=== PATIENT | female | born 1975 | race Caucasian/White ===

== ENCOUNTER 2016-12-25 20:30 | Emergency (ER) | payer OTHER ==
--- NOTE | 2016-12-25 23:06 | ED NURSING NOTES ---
Clinical Report - Nurses [facility] [address] [place] [address] 12/25/2016 20:30 Patient: ROSSY MCDONOUGH TRIAGE Triage time 2049. Acuity: LEVEL 4. Chief Complaint: PAINFUL URINATION, URGENCY and FREQUENCY. --21:12 Claribel Pete R.N. 20:40 12/25/16. BP: 123/78. HR: 84. RR: 18. O2 saturation: 100%. Temp: 98.8 F. --21:12 Claribel Pete R.N. Weight: 52 kg stated. Height/Length: 62 inches Per Patient. BMI: 21. --21:11 Claribel Pete R.N. Medications None. --20:51 Claribel Pete R.N. Allergies No Known Drug Allergy. --20:51 Claribel Pete R.N. History Arrived by private vehicle. Historian: patient. Accompanied by friend. No primary care physician. This started today. SOCIAL HX: Heavy tobacco smoker (cigarette)- 1 pack per day. History of drug use: heroin. No alcohol use. --21:12 Claribel Pete R.N. PROBLEMS: Dental Caries. Cellulitis. Lifestyle / Substance Problems. Abscess. Pharyngitis. --20:52 Claribel Pete R.N. ADDITIONAL SURGERIES: Back Surgery. Femor repair. Tonsillectomy. --20:52 Claribel Pete R.N. Interventions ID band on patient. To treatment room. --21:12 Claribel Pete R.N. NURSING PROGRESS NOTES 21:00. Patient ID band checked for patient name and birthdate: patient confirmed urine collected with return of yellow-colored clear urine; sample sent to lab for urinalysis, culture and HCG. Specimen labeled in the presence of the patient. --21:11 Claribel Pete R.N. ( Cannot find pt. Checked lobby and bathroom. Called twice.). --22:33 Magda Shirley R.N. DISPOSITION / DISCHARGE The patient left the Emergency Department without being seen by a physician. She stated is leaving the ED (did not notify anyone.). --23:05 Magda Shirley R.N. Departure time: 23:05 Dec 25 2016. --23:05 Magda Shirley R.N. Locked/Released at 12/25/2016 23:05 by Magda Shirley R.N.
--- NOTE | 2016-12-25 23:06 | ED CLINICAL REPORT ---
Clinical Report - Physicians/Mid Levels [facility] [address] [place] [address] 12/25/2016 20:30 [id number] *This is a preliminary document and is subject to change Time Seen: 22:30; initial patient contact, initial documentation, patient care assumed. Arrived- By private vehicle. Historian- patient. HISTORY OF PRESENT ILLNESS Chief Complaint: DYSURIA. Still present. The patient has had pain with urination and urgency of urination. The patient has had urinary frequency. REVIEW OF SYSTEMS All systems otherwise negative, except as recorded above. PAST HISTORY See nurses notes. ( PROBLEMS: Dental Caries. Cellulitis. Lifestyle / Substance Problems. Abscess. Pharyngitis. --20:52 Claribel Pete R.N. ADDITIONAL SURGERIES: Back Surgery. Femor repair. Tonsillectomy. --20:52 Claribel Pete R.N.). SOCIAL HISTORY Heavy tobacco smoker. History of heavy IV drug use: heroin. No alcohol use. No recent travel. Is a local resident. FAMILY HISTORY Negative. ADDITIONAL NOTES The nursing notes have been reviewed with agreement regarding the chief complaint, HPI, ROS, PMH and patient medications and allergies. PHYSICAL EXAM Vital Signs: 12/25/2016 20:40 BP: 123/78. HR: 84. RR: 18. O2 saturation: 100%. Temp: 98.8 F. Have been reviewed as normal and appear to be correct. Appearance: Alert. Oriented X3. No acute distress. LABS, X-RAYS, AND EKG Laboratory Tests: UA-Culture if indicated: (CLARIBEL: 12/25/2016 21:00) ( MsgRcvd 12/25/2016 21:35) Final results Test Result Flag Units (Reference) URINE COLOR YELLOW URINE APPEARANCE CLEAR URINE GLUCOSE NEGATIVE (NEGATIVE) URINE BILIRUBIN NEGATIVE (NEGATIVE) URINE KETONE NEGATIVE (NEGATIVE) URINE SPECIFIC GRAVITY 1.015 (1.010-1.030) URINE PH 7.0 (5.0-8.0) URINE PROTEIN NEGATIVE (NEGATIVE) URINE UROBILINOGEN 2.0 EU/dL (0.2-1.0) The urobilinogen reagent area may react with interferingsubstances known to react with Joaquina's reagent such asp-aminosalicylic acid and sulfonamides. Atypical colorreactions may be obtained in the presence of highconcentrations of p-aminobenzoic acid. The absence ofurobilinogen cannot be determined with this test. URINE NITRITE POSITIVE (NEGATIVE) URINE BLOOD 2+ (NEGATIVE) URINE LEUK ESTERASE TRACE (NEGATIVE) URINE RBC 1-3 rbc/hpf (0-1) URINE WBC 15-25 wbc/hpf (0-1) URINE EPITHELIAL CELLS 0-1 EPI/hpf (0-5) URINE BACTERIA MANY (4+) (NONE SEEN) URINE COMMENT CULTURE INDICATED URINE CULTURES ARE SET-UP BASED ON THE FOLLOWING CRITERIA:POSITIVE NITRITEPOSITIVE LEUKOCYTE ESTERASEGREATER THAN 10 WHITE BLOOD CELLSMODERATE (2+) OR GREATER BACTERIA Urine: (CLARIBEL: 12/25/2016 21:00) ( MsgRcvd 12/25/2016 21:44) Final results Test Result Flag Units (Reference) URINE NEGATIVE . PROGRESS AND PROCEDURES Differential Diagnosis: Other possible considerations: uti, pyelo, urosespis. Above considerations are based on history, physical exam and laboratory data. Differential diagnosis was discussed with patient. Cyndi Gramajo A.R.N.P.
--- NOTE | 2016-12-25 23:06 | ED CLINICAL REPORT ---
Clinical Report - Physicians/Mid Levels [facility] [address] [place] [address] 12/25/2016 20:30 [id number] *This is a preliminary document and is subject to change Time Seen: 22:30; initial patient contact, initial documentation, patient care assumed. Arrived- By private vehicle. Historian- patient. HISTORY OF PRESENT ILLNESS Chief Complaint: DYSURIA. Still present. The patient has had pain with urination and urgency of urination. The patient has had urinary frequency. REVIEW OF SYSTEMS All systems otherwise negative, except as recorded above. PAST HISTORY See nurses notes. ( PROBLEMS: Dental Caries. Cellulitis. Lifestyle / Substance Problems. Abscess. Pharyngitis. --20:52 Claribel Pete R.N. ADDITIONAL SURGERIES: Back Surgery. Femor repair. Tonsillectomy. --20:52 Claribel Pete R.N.). SOCIAL HISTORY Heavy tobacco smoker. History of heavy IV drug use: heroin. No alcohol use. No recent travel. Is a local resident. FAMILY HISTORY Negative. ADDITIONAL NOTES The nursing notes have been reviewed with agreement regarding the chief complaint, HPI, ROS, PMH and patient medications and allergies. PHYSICAL EXAM Vital Signs: 12/25/2016 20:40 BP: 123/78. HR: 84. RR: 18. O2 saturation: 100%. Temp: 98.8 F. Have been reviewed as normal and appear to be correct. Appearance: Alert. Oriented X3. No acute distress. LABS, X-RAYS, AND EKG Laboratory Tests: UA-Culture if indicated: (CLARIBEL: 12/25/2016 21:00) ( MsgRcvd 12/25/2016 21:35) Final results Test Result Flag Units (Reference) URINE COLOR YELLOW URINE APPEARANCE CLEAR URINE GLUCOSE NEGATIVE (NEGATIVE) URINE BILIRUBIN NEGATIVE (NEGATIVE) URINE KETONE NEGATIVE (NEGATIVE) URINE SPECIFIC GRAVITY 1.015 (1.010-1.030) URINE PH 7.0 (5.0-8.0) URINE PROTEIN NEGATIVE (NEGATIVE) URINE UROBILINOGEN 2.0 EU/dL (0.2-1.0) The urobilinogen reagent area may react with interferingsubstances known to react with Joaquina's reagent such asp-aminosalicylic acid and sulfonamides. Atypical colorreactions may be obtained in the presence of highconcentrations of p-aminobenzoic acid. The absence ofurobilinogen cannot be determined with this test. URINE NITRITE POSITIVE (NEGATIVE) URINE BLOOD 2+ (NEGATIVE) URINE LEUK ESTERASE TRACE (NEGATIVE) URINE RBC 1-3 rbc/hpf (0-1) URINE WBC 15-25 wbc/hpf (0-1) URINE EPITHELIAL CELLS 0-1 EPI/hpf (0-5) URINE BACTERIA MANY (4+) (NONE SEEN) URINE COMMENT CULTURE INDICATED URINE CULTURES ARE SET-UP BASED ON THE FOLLOWING CRITERIA:POSITIVE NITRITEPOSITIVE LEUKOCYTE ESTERASEGREATER THAN 10 WHITE BLOOD CELLSMODERATE (2+) OR GREATER BACTERIA Urine: (CLARIBEL: 12/25/2016 21:00) ( MsgRcvd 12/25/2016 21:44) Final results Test Result Flag Units (Reference) URINE NEGATIVE . PROGRESS AND PROCEDURES Differential Diagnosis: Other possible considerations: uti, pyelo, urosespis. Above considerations are based on history, physical exam and laboratory data. Differential diagnosis was discussed with patient. Cyndi Gramajo A.R.N.P.
--- NOTE | 2016-12-25 23:06 | ED NURSING NOTES ---
Clinical Report - Nurses [facility] [address] [place] [address] 12/25/2016 20:30 Patient: ROSSY MCDONOUGH TRIAGE Triage time 2049. Acuity: LEVEL 4. Chief Complaint: PAINFUL URINATION, URGENCY and FREQUENCY. --21:12 Claribel Pete R.N. 20:40 12/25/16. BP: 123/78. HR: 84. RR: 18. O2 saturation: 100%. Temp: 98.8 F. --21:12 Claribel Pete R.N. Weight: 52 kg stated. Height/Length: 62 inches Per Patient. BMI: 21. --21:11 Claribel Pete R.N. Medications None. --20:51 Claribel Pete R.N. Allergies No Known Drug Allergy. --20:51 Claribel Pete R.N. History Arrived by private vehicle. Historian: patient. Accompanied by friend. No primary care physician. This started today. SOCIAL HX: Heavy tobacco smoker (cigarette)- 1 pack per day. History of drug use: heroin. No alcohol use. --21:12 Claribel Pete R.N. PROBLEMS: Dental Caries. Cellulitis. Lifestyle / Substance Problems. Abscess. Pharyngitis. --20:52 Claribel Pete R.N. ADDITIONAL SURGERIES: Back Surgery. Femor repair. Tonsillectomy. --20:52 Claribel Pete R.N. Interventions ID band on patient. To treatment room. --21:12 Claribel Pete R.N. NURSING PROGRESS NOTES 21:00. Patient ID band checked for patient name and birthdate: patient confirmed urine collected with return of yellow-colored clear urine; sample sent to lab for urinalysis, culture and HCG. Specimen labeled in the presence of the patient. --21:11 Claribel Pete R.N. ( Cannot find pt. Checked lobby and bathroom. Called twice.). --22:33 Magda Shirley R.N. DISPOSITION / DISCHARGE The patient left the Emergency Department without being seen by a physician. She stated is leaving the ED (did not notify anyone.). --23:05 Magda Shirley R.N. Departure time: 23:05 Dec 25 2016. --23:05 Magda Shirley R.N. Locked/Released at 12/25/2016 23:05 by Magda Shirley R.N.
--- NOTE | 2016-12-25 23:06 | ED ORDER SUMMARY ---
..... Patient: ROSSY MCDONOUGH OrderSheet [facility] VisitID: [id number] [address] [place] [address] 41y, F Registration Date/Time: 12/25/2016 ORDER SHEET Weight: 52 kg (stated) Allergies: No Known Drug Allergy GENERAL ORDERS: UA-Culture if indicated Urgent (21:12/25/2016 DDean R.N. per protocol) (Ack 21:35 Mati) (21:46 Alexandra R.N.) Urine Urgent (21:30 12/25/2016 DDean R.N. per protocol) (Ack 21:35 Mati) (21:46 Alexandra R.N.) MEDICATION ORDERS: IV FLUIDS: ORDER SHEET NOTES: [Electronically signed by Magda Shirley R.N. (23:12/25/2016)] [Electronically locked/signed by Magda Shirley R.N. (23:12/25/2016)]
--- NOTE | 2016-12-25 23:06 | ED ORDER SUMMARY ---
..... Patient: ROSSY MCDONOUGH OrderSheet [facility] VisitID: [id number] [address] [place] [address] 41y, F Registration Date/Time: 12/25/2016 ORDER SHEET Weight: 52 kg (stated) Allergies: No Known Drug Allergy GENERAL ORDERS: UA-Culture if indicated Urgent (21:12/25/2016 DDean R.N. per protocol) (Ack 21:35 Mati) (21:46 Alexandra R.N.) Urine Urgent (21:30 12/25/2016 DDean R.N. per protocol) (Ack 21:35 Mati) (21:46 Alexandra R.N.) MEDICATION ORDERS: IV FLUIDS: ORDER SHEET NOTES: [Electronically signed by Magda Shirley R.N. (23:12/25/2016)] [Electronically locked/signed by Magda Shirley R.N. (23:12/25/2016)]
--- NOTE | 2016-12-25 23:09 | ED MAR SUMMARY ---
..... Medication Administration Record [facility] [address] [place], [place] [id number] Patient: ROSSY MCDONOUGH Visit ID: [id number] 41y, F Weight: 52.0 kg Height/Length: 62 in BMI: 21 ALLERGIES: No Known Drug Allergy
--- NOTE | 2016-12-25 23:09 | ED MED RECONCILIATION SUMMARY ---
Patient: ROSSY MCDONOUGH Medication Reconciliation Report [facility] VisitID: [id number] [address] [place] [address] 41y, F Registration Date/Time: 12/25/2016 Weight: 52 kg Height/Length: 62 in. BMI: 21.0 ALLERGIES: No Known Drug Allergy The patient's Home Medications are listed below: NONE. The source(s) of the original Home Medication information: Not obtained. The following Medications were given to the patient in the Emergency Department: None. The following Medications were prescribed to the patient: None.
--- NOTE | 2016-12-25 23:09 | ED MED RECONCILIATION SUMMARY ---
Patient: ROSSY MCDONOUGH Medication Reconciliation Report [facility] VisitID: [id number] [address] [place] [address] 41y, F Registration Date/Time: 12/25/2016 Weight: 52 kg Height/Length: 62 in. BMI: 21.0 ALLERGIES: No Known Drug Allergy The patient's Home Medications are listed below: NONE. The source(s) of the original Home Medication information: Not obtained. The following Medications were given to the patient in the Emergency Department: None. The following Medications were prescribed to the patient: None.
--- NOTE | 2016-12-25 23:09 | ED MAR SUMMARY ---
..... Medication Administration Record [facility] [address] [place], [place] [id number] Patient: ROSSY MCDONOUGH Visit ID: [id number] 41y, F Weight: 52.0 kg Height/Length: 62 in BMI: 21 ALLERGIES: No Known Drug Allergy
== END 2016-12-25 23:05 | disposition left against medical advice (07) ==
LOC: ED SRH 20:30
DX: R30.0 Dysuria (principal); F17.210 Nicotine dependence, cigarettes, uncomplicated
CPT/HCPCS: 90004; 90148; 90469; 93070

== ENCOUNTER 2016-12-26 03:13 | Emergency (ER) | payer OTHER ==
--- NOTE | 2016-12-26 03:49 | ED CLINICAL REPORT ---
Clinical Report - Physicians/Mid Levels [facility] [address] [place] [address] 12/26/2016 3:13 [id number] Time Seen: 03:42 Dec 26 2016. Arrived- By private vehicle. Historian- patient. HISTORY OF PRESENT ILLNESS Chief Complaint: DYSURIA. This started yesterday and still present. The symptoms are described as moderate. Modifying factors- worsened by urination. Not relieved by anything. The patient has had mild abdominal pain. The pain is described as located in the suprapubic region. No vaginal discharge. She has had pain with urination and urgency of urination. The patient has had urinary frequency and hematuria. Similar symptoms previously: As bad. Diagnosis: UTI. Recent medical care: Not recently seen/assessed. REVIEW OF SYSTEMS No nausea, vomiting, diarrhea, black stools or sore throat. No cough, difficulty breathing, chest pain, skin rash or enlarged lymph nodes. All systems otherwise negative, except as recorded above. PAST HISTORY ( Dental Abscess. Strep Throat. Dental Caries. Cellulitis. Lifestyle / Substance Problems.). Medications: None. Allergies: No Known Drug Allergy. SOCIAL HISTORY Heavy tobacco smoker (cigarette)- 1 pack per day. Alcohol use. History of drug use: marijuana. ADDITIONAL NOTES The nursing notes have been reviewed. PHYSICAL EXAM Vital Signs: 12/26/2016 03:20 BP: 130/80. HR: 78. RR: 18. O2 saturation: 100%. Temp: 98.3 F. Pain level now: 5/10. Appearance: Alert. No acute distress. ENT: Pharynx normal. Neck: Neck supple. CVS: Heart sounds normal. Respiratory: No respiratory distress. Breath sounds normal. Chest nontender. Abdomen: Soft and nontender. Back: Normal external inspection. No CVA tenderness. Skin: Skin warm. Normal skin color. No rash. Extremities: Extremities nontender. No lower extremity edema. Neuro: Oriented X 3. Mood/affect normal. No motor deficit. PROGRESS AND PROCEDURES Course of Care: ( URINE APPEARANCE CLEAR URINE GLUCOSE NEGATIVE (NEGATIVE) URINE BILIRUBIN NEGATIVE (NEGATIVE) URINE KETONE NEGATIVE (NEGATIVE) URINE SPECIFIC GRAVITY 1.015 (1.010-1.030) URINE PH 7.0 (5.0-8.0) URINE PROTEIN NEGATIVE (NEGATIVE) URINE UROBILINOGEN 2.0 EU/dL (0.2-1.0) The urobilinogen reagent area may react with interfering substances known to react with Joaquina's reagent such as p-aminosalicylic acid and sulfonamides. Atypical color reactions may be obtained in the presence of high concentrations of p-aminobenzoic acid. The absence of urobilinogen cannot be determined with this test. URINE NITRITE POSITIVE (NEGATIVE) URINE BLOOD 2+ (NEGATIVE) URINE LEUK ESTERASE TRACE (NEGATIVE) URINE RBC 1-3 rbc/hpf (0-1) URINE WBC 15-25 wbc/hpf (0-1) URINE EPITHELIAL CELLS 0-1 EPI/hpf (0-5) URINE BACTERIA MANY (4+) (NONE SEEN) URINE COMMENT CULTURE INDICATED URINE CULTURES ARE SET-UP BASED ON THE FOLLOWING CRITERIA: POSITIVE NITRITE POSITIVE LEUKOCYTE ESTERASE GREATER THAN 10 WHITE BLOOD CELLS MODERATE (2+) OR GREATER BACTERIA). --. Patient/family counseled. Disposition: Discharged. Condition: stable. CLINICAL IMPRESSION Acute urinary tract infection with cystitis. INSTRUCTIONS Drink plenty of fluids. Warnings: Further evaluation is necessary. Prescription Medications: Pyridium 200 mg: take 1 orally every 8 hours as needed for urinary problems. Dispense six (6). No refills. Substitution is permissible. Septra DS 800 mg / 160 mg: take 1 tablet orally every 12 hours for 7 days. Dispense fourteen (14). No refills. Substitution is permissible. Follow-up: Follow up with your doctor in one week. Call for an appointment. Understanding of the discharge instructions verbalized by patient. (Electronically signed by Dagoberto Joaquin MD 12/27/2016 12:01) Addenda for ROSSY MCDONOUGH VisitID: [id number] Date: 12/26/2016 12/27/2016 12:00 UA ordered and positive for UTI. (Electronically signed by Dagoberto Joaquin MD - 12/27/2016 12:00)
--- NOTE | 2016-12-26 03:49 | ED CLINICAL REPORT ---
Clinical Report - Physicians/Mid Levels [facility] [address] [place] [address] 12/26/2016 3:13 [id number] Time Seen: 03:42 Dec 26 2016. Arrived- By private vehicle. Historian- patient. HISTORY OF PRESENT ILLNESS Chief Complaint: DYSURIA. This started yesterday and still present. The symptoms are described as moderate. Modifying factors- worsened by urination. Not relieved by anything. The patient has had mild abdominal pain. The pain is described as located in the suprapubic region. No vaginal discharge. She has had pain with urination and urgency of urination. The patient has had urinary frequency and hematuria. Similar symptoms previously: As bad. Diagnosis: UTI. Recent medical care: Not recently seen/assessed. REVIEW OF SYSTEMS No nausea, vomiting, diarrhea, black stools or sore throat. No cough, difficulty breathing, chest pain, skin rash or enlarged lymph nodes. All systems otherwise negative, except as recorded above. PAST HISTORY ( Dental Abscess. Strep Throat. Dental Caries. Cellulitis. Lifestyle / Substance Problems.). Medications: None. Allergies: No Known Drug Allergy. SOCIAL HISTORY Heavy tobacco smoker (cigarette)- 1 pack per day. Alcohol use. History of drug use: marijuana. ADDITIONAL NOTES The nursing notes have been reviewed. PHYSICAL EXAM Vital Signs: 12/26/2016 03:20 BP: 130/80. HR: 78. RR: 18. O2 saturation: 100%. Temp: 98.3 F. Pain level now: 5/10. Appearance: Alert. No acute distress. ENT: Pharynx normal. Neck: Neck supple. CVS: Heart sounds normal. Respiratory: No respiratory distress. Breath sounds normal. Chest nontender. Abdomen: Soft and nontender. Back: Normal external inspection. No CVA tenderness. Skin: Skin warm. Normal skin color. No rash. Extremities: Extremities nontender. No lower extremity edema. Neuro: Oriented X 3. Mood/affect normal. No motor deficit. PROGRESS AND PROCEDURES Course of Care: ( URINE APPEARANCE CLEAR URINE GLUCOSE NEGATIVE (NEGATIVE) URINE BILIRUBIN NEGATIVE (NEGATIVE) URINE KETONE NEGATIVE (NEGATIVE) URINE SPECIFIC GRAVITY 1.015 (1.010-1.030) URINE PH 7.0 (5.0-8.0) URINE PROTEIN NEGATIVE (NEGATIVE) URINE UROBILINOGEN 2.0 EU/dL (0.2-1.0) The urobilinogen reagent area may react with interfering substances known to react with Joaquina's reagent such as p-aminosalicylic acid and sulfonamides. Atypical color reactions may be obtained in the presence of high concentrations of p-aminobenzoic acid. The absence of urobilinogen cannot be determined with this test. URINE NITRITE POSITIVE (NEGATIVE) URINE BLOOD 2+ (NEGATIVE) URINE LEUK ESTERASE TRACE (NEGATIVE) URINE RBC 1-3 rbc/hpf (0-1) URINE WBC 15-25 wbc/hpf (0-1) URINE EPITHELIAL CELLS 0-1 EPI/hpf (0-5) URINE BACTERIA MANY (4+) (NONE SEEN) URINE COMMENT CULTURE INDICATED URINE CULTURES ARE SET-UP BASED ON THE FOLLOWING CRITERIA: POSITIVE NITRITE POSITIVE LEUKOCYTE ESTERASE GREATER THAN 10 WHITE BLOOD CELLS MODERATE (2+) OR GREATER BACTERIA). --. Patient/family counseled. Disposition: Discharged. Condition: stable. CLINICAL IMPRESSION Acute urinary tract infection with cystitis. INSTRUCTIONS Drink plenty of fluids. Warnings: Further evaluation is necessary. Prescription Medications: Pyridium 200 mg: take 1 orally every 8 hours as needed for urinary problems. Dispense six (6). No refills. Substitution is permissible. Septra DS 800 mg / 160 mg: take 1 tablet orally every 12 hours for 7 days. Dispense fourteen (14). No refills. Substitution is permissible. Follow-up: Follow up with your doctor in one week. Call for an appointment. Understanding of the discharge instructions verbalized by patient. (Electronically signed by Dagoberto Joaquin MD 12/27/2016 12:01) Addenda for ROSSY MCDONOUGH VisitID: [id number] Date: 12/26/2016 12/27/2016 12:00 UA ordered and positive for UTI. (Electronically signed by Dagoberto Joaquin MD - 12/27/2016 12:00)
--- NOTE | 2016-12-26 03:49 | ED NURSING NOTES ---
Clinical Report - Nurses [address] [place] [address] 12/26/2016 3:13 Patient: ROSSY MCDONOUGH TRIAGE Triage time 03:Dec 26 2016. Acuity: LEVEL 4. Chief Complaint: PAINFUL URINATION and FREQUENCY. 03:25 12/26/16. SEPSIS SCREEN: Sepsis Screen: negative. Negative (no infection suspected/documented). --03:25 Christina Hilario R.N. 03:20 12/26/16. BP: 130/80. HR: 78. RR: 18. O2 saturation: 100%. Temp: 98.3 F. Pain level now: 03/25. --03:25 Christina Hilario R.N. Weight: 52.1 kg stated. Height/Length: 63 inches Per Patient. BMI: 20.4. --03:20 Christina Hilario R.N. Medications None. --03:24 Christina Hilario R.N. Allergies No Known Drug Allergy. --03:24 Christina Hilario R.N. Medication/allergy information source: the patient. --03:25 Christina Hilario RDiana. History Arrived by private vehicle. Historian: patient. Accompanied by friend. Onset. (24 hours). Treatment EDITING INTERN: None. PAST MEDICAL HX: Denies current . SOCIAL HX: Heavy tobacco smoker (cigarette)- 1 pack per day. Regular alcohol use. History of drug use: marijuana. No infectious disease exposure. ABUSE ASSESSMENT: No report of abuse. SELF HARM ASSESSMENT: A self harm assessment was performed. The patient answered "no" to the question "Have you recently felt down, depressed, or hopeless?", "Have you noticed less interest or pleasure in doing things?", "Do you have thoughts of harming or killing yourself?", "Are you here because you tried to hurt yourself?", "Have you ever tried to hurt yourself before today?", "Have you recently had thoughts about harming or killing others?" and "Do you have any dangerous items in your possession?". NUTRITIONAL RISK ASSESSMENT: The nutritional risk assessment revealed no deficiencies. FUNCTIONAL ASSESSMENT: Functional assessment: no impairments noted. LEARNING NEEDS ASSESSMENT: The learning needs assessment revealed no barriers. SKIN INTEGRITY ASSESSMENT: Skin integrity risk assessment completed. No skin integrity risk identified. --03:25 Christina Hilario R.N. ( Patient signed in late yesterday for treatment but left before she could see a provider. Pt now returns after she was notified by PHARMACY DATA ANALYST that she did have UTI and needed abx.). --03:26 Christina Hilario R.N. PROBLEMS: Dental Abscess. Strep Throat. Dental Caries. Cellulitis. Lifestyle / Substance Problems. --03:24 Christina Hilario R.N. ADDITIONAL SURGERIES: Back Surgery. Femor repair. Tonsillectomy. --03:24 Christina Hilario R.N. Interventions ID band on patient. --03:25 Christina Hilario R.N. PHYSICAL ASSESSMENT 03:27 12/26/16. GENERAL / NEURO / PSYCH: Alert. Oriented X 4. HEENT: Mucous membranes are pink. RESPIRATORY: Respirations not labored. Breath sounds within normal limits. CVS: Capillary refill less than 2 seconds. GI / : Abdomen soft. Pain with urination. She has had frequency of urination. Urgency of urination. No vaginal bleeding. No vaginal discharge. SKIN: Skin is warm and dry. --03:27 Christina Hilario R.N. NURSING PROGRESS NOTES 03:26 12/26/16. Two patient identifiers checked. Bed placed in lowest position. Brakes of bed on. Patient ready for evaluation. --03:26 Christina Hilario R.N. ( URINE APPEARANCE CLEAR URINE GLUCOSE NEGATIVE (NEGATIVE) URINE BILIRUBIN NEGATIVE (NEGATIVE) URINE KETONE NEGATIVE (NEGATIVE) URINE SPECIFIC GRAVITY 1.015 (1.010-1.030) URINE PH 7.0 (5.0-8.0) URINE PROTEIN NEGATIVE (NEGATIVE) URINE UROBILINOGEN 2.0 EU/dL (0.2-1.0) The urobilinogen reagent area may react with interfering substances known to react with Joaquina's reagent such as p-aminosalicylic acid and sulfonamides. Atypical color reactions may be obtained in the presence of high concentrations of p-aminobenzoic acid. The absence of urobilinogen cannot be determined with this test. URINE NITRITE POSITIVE (NEGATIVE) URINE BLOOD 2+ (NEGATIVE) URINE LEUK ESTERASE TRACE (NEGATIVE) URINE RBC 1-3 rbc/hpf (0-1) URINE WBC 15-25 wbc/hpf (0-1) URINE EPITHELIAL CELLS 0-1 EPI/hpf (0-5) URINE BACTERIA MANY (4+) (NONE SEEN) URINE COMMENT CULTURE INDICATED URINE CULTURES ARE SET-UP BASED ON THE FOLLOWING CRITERIA: POSITIVE NITRITE POSITIVE LEUKOCYTE ESTERASE GREATER THAN 10 WHITE BLOOD CELLS MODERATE (2+) OR GREATER BACTERIA). --03:29 Christina Hilario R.N. DISPOSITION / DISCHARGE 03:52 12/26/16. Departure time: 03:52 Dec 26 2016. Condition at departure: unchanged and stable. The goals identified in the patient's plan of care were met. No learning barriers present. Discharge instructions provided and reviewed with the patient. Reviewed medication(s) side effects, precautions, dosing and course information. Prescription(s) given to the patient. Reviewed referral to a primary care physician for followup. Summary of care provided to patient via paper. Patient verbalized understanding. Written instructions provided in [place]. The patient was discharged home and accompanied by revenue manager. She left the Emergency Department ambulatory and via private vehicle. Clinical Asst driving. --03:52 Christina Hilario R.N. 03:20 12/26/16. BP: 130/80. HR: 78. RR: 18. O2 saturation: 100%. Temp: 98.3 F. Pain level now: 03/25. --03:52 Christina Hilario R.N. Locked/Released at 12/26/2016 3:52 by Christina Hilario R.N.
--- NOTE | 2016-12-26 03:49 | ED NURSING NOTES ---
Clinical Report - Nurses [address] [place] [address] 12/26/2016 3:13 Patient: ROSSY MCDONOUGH TRIAGE Triage time 03:Dec 26 2016. Acuity: LEVEL 4. Chief Complaint: PAINFUL URINATION and FREQUENCY. 03:25 12/26/16. SEPSIS SCREEN: Sepsis Screen: negative. Negative (no infection suspected/documented). --03:25 Christina Hilario R.N. 03:20 12/26/16. BP: 130/80. HR: 78. RR: 18. O2 saturation: 100%. Temp: 98.3 F. Pain level now: 03/25. --03:25 Christina Hilario R.N. Weight: 52.1 kg stated. Height/Length: 63 inches Per Patient. BMI: 20.4. --03:20 Christina Hilario R.N. Medications None. --03:24 Christina Hilario R.N. Allergies No Known Drug Allergy. --03:24 Christina Hilario R.N. Medication/allergy information source: the patient. --03:25 Christina Hilario RDiana. History Arrived by private vehicle. Historian: patient. Accompanied by friend. Onset. (24 hours). Treatment AUTOMOBILE BODY REPAIRER: None. PAST MEDICAL HX: Denies current . SOCIAL HX: Heavy tobacco smoker (cigarette)- 1 pack per day. Regular alcohol use. History of drug use: marijuana. No infectious disease exposure. ABUSE ASSESSMENT: No report of abuse. SELF HARM ASSESSMENT: A self harm assessment was performed. The patient answered "no" to the question "Have you recently felt down, depressed, or hopeless?", "Have you noticed less interest or pleasure in doing things?", "Do you have thoughts of harming or killing yourself?", "Are you here because you tried to hurt yourself?", "Have you ever tried to hurt yourself before today?", "Have you recently had thoughts about harming or killing others?" and "Do you have any dangerous items in your possession?". NUTRITIONAL RISK ASSESSMENT: The nutritional risk assessment revealed no deficiencies. FUNCTIONAL ASSESSMENT: Functional assessment: no impairments noted. LEARNING NEEDS ASSESSMENT: The learning needs assessment revealed no barriers. SKIN INTEGRITY ASSESSMENT: Skin integrity risk assessment completed. No skin integrity risk identified. --03:25 Christina Hilario R.N. ( Patient signed in late yesterday for treatment but left before she could see a provider. Pt now returns after she was notified by CODER OPERATOR that she did have UTI and needed abx.). --03:26 Christina Hilario R.N. PROBLEMS: Dental Abscess. Strep Throat. Dental Caries. Cellulitis. Lifestyle / Substance Problems. --03:24 Christina Hilario R.N. ADDITIONAL SURGERIES: Back Surgery. Femor repair. Tonsillectomy. --03:24 Christina Hilario R.N. Interventions ID band on patient. --03:25 Christina Hilario R.N. PHYSICAL ASSESSMENT 03:27 12/26/16. GENERAL / NEURO / PSYCH: Alert. Oriented X 4. HEENT: Mucous membranes are pink. RESPIRATORY: Respirations not labored. Breath sounds within normal limits. CVS: Capillary refill less than 2 seconds. GI / : Abdomen soft. Pain with urination. She has had frequency of urination. Urgency of urination. No vaginal bleeding. No vaginal discharge. SKIN: Skin is warm and dry. --03:27 Christina Hilario R.N. NURSING PROGRESS NOTES 03:26 12/26/16. Two patient identifiers checked. Bed placed in lowest position. Brakes of bed on. Patient ready for evaluation. --03:26 Christina Hilario R.N. ( URINE APPEARANCE CLEAR URINE GLUCOSE NEGATIVE (NEGATIVE) URINE BILIRUBIN NEGATIVE (NEGATIVE) URINE KETONE NEGATIVE (NEGATIVE) URINE SPECIFIC GRAVITY 1.015 (1.010-1.030) URINE PH 7.0 (5.0-8.0) URINE PROTEIN NEGATIVE (NEGATIVE) URINE UROBILINOGEN 2.0 EU/dL (0.2-1.0) The urobilinogen reagent area may react with interfering substances known to react with Joaquina's reagent such as p-aminosalicylic acid and sulfonamides. Atypical color reactions may be obtained in the presence of high concentrations of p-aminobenzoic acid. The absence of urobilinogen cannot be determined with this test. URINE NITRITE POSITIVE (NEGATIVE) URINE BLOOD 2+ (NEGATIVE) URINE LEUK ESTERASE TRACE (NEGATIVE) URINE RBC 1-3 rbc/hpf (0-1) URINE WBC 15-25 wbc/hpf (0-1) URINE EPITHELIAL CELLS 0-1 EPI/hpf (0-5) URINE BACTERIA MANY (4+) (NONE SEEN) URINE COMMENT CULTURE INDICATED URINE CULTURES ARE SET-UP BASED ON THE FOLLOWING CRITERIA: POSITIVE NITRITE POSITIVE LEUKOCYTE ESTERASE GREATER THAN 10 WHITE BLOOD CELLS MODERATE (2+) OR GREATER BACTERIA). --03:29 Christina Hilario R.N. DISPOSITION / DISCHARGE 03:52 12/26/16. Departure time: 03:52 Dec 26 2016. Condition at departure: unchanged and stable. The goals identified in the patient's plan of care were met. No learning barriers present. Discharge instructions provided and reviewed with the patient. Reviewed medication(s) side effects, precautions, dosing and course information. Prescription(s) given to the patient. Reviewed referral to a primary care physician for followup. Summary of care provided to patient via paper. Patient verbalized understanding. Written instructions provided in Slovak. The patient was discharged home and accompanied by arborist. She left the Emergency Department ambulatory and via private vehicle. Advertising Campaign Manager driving. --03:52 Chritsina Hilario R.N. 03:20 12/26/16. BP: 130/80. HR: 78. RR: 18. O2 saturation: 100%. Temp: 98.3 F. Pain level now: 03/25. --03:52 Christina Hilario R.N. Locked/Released at 12/26/2016 3:52 by Christina Hilario R.N.
--- NOTE | 2016-12-27 12:01 | ED MAR SUMMARY ---
..... Medication Administration Record [facility] [address] [place], [place] [id number] Patient: ROSSY MCDONOUGH Visit ID: [id number] 41y, F Weight: 52.1 kg Height/Length: 63 in BMI: 20.4 ALLERGIES: No Known Drug Allergy
--- NOTE | 2016-12-27 12:01 | ED MAR SUMMARY ---
..... Medication Administration Record [facility] [address] [place], [place] [id number] Patient: ROSSY MCDONOUGH Visit ID: [id number] 41y, F Weight: 52.1 kg Height/Length: 63 in BMI: 20.4 ALLERGIES: No Known Drug Allergy
--- NOTE | 2016-12-27 12:01 | ED MED RECONCILIATION SUMMARY ---
Patient: ROSSY MCDONOUGH Medication Reconciliation Report [facility] VisitID: [id number] [place] [address] 41y, F Registration Date/Time: 12/26/2016 Weight: 52.1 kg Height/Length: 63 in. BMI: 20.4 ALLERGIES: No Known Drug Allergy The patient's Home Medications are listed below: NONE. The source(s) of the original Home Medication information: patient The following Medications were given to the patient in the Emergency Department: None. The following Medications were prescribed to the patient: Pyridium 200 mg: take 1 orally every 8 hours as needed for urinary problems. Dispense six (6). No refills. Substitution is permissible. -- Dagoberto Joaquin MD Septra DS 800 mg / 160 mg: take 1 tablet orally every 12 hours for 7 days. Dispense fourteen (14). No refills. Substitution is permissible. -- Dagoberto Joaquin MD
--- NOTE | 2016-12-27 12:01 | ED DISCHARGE INSTRUCTIONS ---
Patient: ROSSY MCDONOUGH General Instructions Merged With [facility] VisitID: [id number] [place] [address] 41y, F Registration Date/Time: 12/26/2016 Acute urinary tract infection with cystitis. INSTRUCTIONS Drink plenty of fluids. Warnings: Further evaluation is necessary. Prescription Medications: Pyridium 200 mg: take 1 orally every 8 hours as needed for urinary problems. Dispense six (6). No refills. Substitution is permissible. Septra DS 800 mg / 160 mg: take 1 tablet orally every 12 hours for 7 days. Dispense fourteen (14). No refills. Substitution is permissible. Follow-up: Follow up with your doctor in one week. Call for an appointment. Understanding of the discharge instructions verbalized by patient. ADDITIONAL INFORMATION Bladder Infection,Female (Adult) A bladder infection ("cystitis" or "UTI") usually causes a constant urge to urinate and a burning when passing urine. Urine may be cloudy, smelly or dark. There may be pain in the lower abdomen. A bladder infection occurs when bacteria from the vaginal area enter the bladder opening (urethra). This can occur from sexual intercourse, wearing tight clothing, dehydration and other factors. Home Care: Drink lots of fluids (at least 6-8 glasses a day, unless you must restrict fluids for other medical reasons). This will force the medicine into your urinary system and flush the bacteria out of your body. Avoid sexual intercourse until your symptoms are gone. Avoid caffeine, alcohol and spicy foods. These can irritate the bladder. A bladder infection is treated with antibiotics. You may also be given Pyridium (generic = phenazopyridine) to reduce the burning sensation. This medicine will cause your urine to become a bright orange color. The orange urine may stain clothing. You may wear a pad or panty-liner to protect clothing. Preventing Future Infections: Always wipe from front to back after a bowel movement. Keep the genital area clean and dry. Drink plenty of fluids each day to avoid dehydration. Both sexual partners should wash before intercourse. Urinate right after intercourse to flush out the bladder. Wear cotton underwear and cotton-lined panty hose; avoid tight-fitting pants. If you are on control pills and are having frequent bladder infections, discuss with your doctor. Follow Up: Return to this facility or see your doctor if ALL symptoms are not gone after three days of treatment. Get Prompt Medical Attention if any of the following occur: Fever of 100.4F (38C) or higher, or as directed by your healthcare provider No improvement by the third day of treatment Increasing back or abdominal pain Repeated vomiting; unable to keep medicine down Weakness, dizziness or fainting Vaginal discharge Pain, redness or swelling in the labia (outer vaginal area) You have been given the following additional information: Bladder Infection, Female (Adult) (Electronically signed by Dagoberto Joaquin MD 12/27/2016 12:01)
--- NOTE | 2016-12-27 12:01 | ED MED RECONCILIATION SUMMARY ---
Patient: ROSSY MCDONOUGH Medication Reconciliation Report [facility] VisitID: [id number] [place] [address] 41y, F Registration Date/Time: 12/26/2016 Weight: 52.1 kg Height/Length: 63 in. BMI: 20.4 ALLERGIES: No Known Drug Allergy The patient's Home Medications are listed below: NONE. The source(s) of the original Home Medication information: patient The following Medications were given to the patient in the Emergency Department: None. The following Medications were prescribed to the patient: Pyridium 200 mg: take 1 orally every 8 hours as needed for urinary problems. Dispense six (6). No refills. Substitution is permissible. -- Dagoberto Joaquin MD Septra DS 800 mg / 160 mg: take 1 tablet orally every 12 hours for 7 days. Dispense fourteen (14). No refills. Substitution is permissible. -- Dagoberto Joaquin MD
== END 2016-12-26 03:52 | disposition home or self-care (01) ==
LOC: ED SRH 03:13
DX: N30.00 Acute cystitis without hematuria (principal); F17.210 Nicotine dependence, cigarettes, uncomplicated